=== PATIENT | male | born 1965 | race Two or more races ===

== ENCOUNTER → 2017-03-19 | Outpatient (CLI) | payer BC ==
[2017-03-19 17:47] LABS: HEMOGLOBIN 14.7 g/dL (14.1-18.0); LYMPH % 29.4 % (10-50)
[2017-03-19 19:09] LABS: BUN 8 mg/dL (7-18); PROSTATE-SPECIFIC AG SCREEEN 0.8 ng/mL (0.0-4.0)
[2017-03-19 19:10] LABS: GFR (ESTIMATED) 101 ML/MIN (>60)
== END ==
LOC: LAB 16:49
PROVIDERS: Physician Assistant
DX: Z00.00 Encounter for general adult medical examination without abnormal findings (principal); E55.9 Vitamin D deficiency, unspecified; E03.9 Hypothyroidism, unspecified; F41.9 Anxiety disorder, unspecified; Z79.899 Other long term (current) drug therapy
CPT/HCPCS: G0103